=== PATIENT | female | born 1960 | race Caucasian/White ===

== ENCOUNTER 2019-05-06 09:17 | Day surgery (SDC) | payer OTHER ==
[~2019-05-06] VITALS: Ht 160 cm; Wt 86.9 kg
[2019-05-06 10:00] VITALS: Ht 160 cm; Wt 86.9 kg
[2019-05-06 10:35] VITALS: BP 148/65; PULSE 74; RESP 20
[2019-05-06] MEDS ORDERED: PROPOFOL 60 ML ONE (10:39)
[2019-05-06] MEDS ORDERED: LIDOCAINE 2% (SDV) 5 ML INJ ONE (10:40)
[2019-05-06] MEDS ORDERED: FENTAnyl 50 MCG/ML VIAL IV PRN (11:30)
[2019-05-06] MEDS ORDERED: ONDANSETRON 4 MG INJ IV PRN (11:30)
[2019-05-06 11:45] VITALS: BP 123/67; PULSE 68; RESP 19
== END 2019-05-06 12:07 | disposition home or self-care (01) ==
LOC: GIL 09:17
PROVIDERS: ATTEND Internal Medicine Gastroenterology
DX: Z12.11 Encounter for screening for malignant neoplasm of colon (principal); D12.2 Benign neoplasm of ascending colon; D12.4 Benign neoplasm of descending colon; K64.8 Other hemorrhoids; K57.30 Diverticulosis of large intestine without perforation or abscess without bleeding; K29.50 Unspecified chronic gastritis without bleeding; F17.200 Nicotine dependence, unspecified, uncomplicated
CPT/HCPCS: 43239; 45380; 88305; 88312; Z7610